=== PATIENT | male | born 1970 | race Two or more races ===

== ENCOUNTER 2025-01-26 11:39 | Emergency (ER) | payer MEDICAID, SELFPAY ==
--- NOTE | ~2025-01-26 | XR_ITS ---
EXAMINATION: XR CHEST CLINICAL INFORMATION: CP COMPARISON: None available. TECHNIQUE: PA and lateral views FINDINGS: No hyperinflation. No consolidation, pleural effusion or pneumothorax. Cardiomediastinal silhouette size is normal. Multilevel mid to lower thoracic spondylosis, mild to moderate. XR/XR chest 2V IMPRESSION: No acute airspace disease. Spondylosis, mild to moderate. Electronically signed by: Axel Ward MD 01/26/2025 12:13 PM EDT
--- NOTE | 2025-01-26 11:47 | ECG_ITS ---
Test Reason : sob Blood Pressure : */* mmHG Vent. Rate : 70 BPM Atrial Rate : 70 BPM P-R Int : 158 ms QRS Dur : 88 ms QT Int : 390 ms P-R-T Axes : 53 39 17 degrees QTcB Int : 421 ms Normal sinus rhythm Normal ECG No previous ECGs available Referred By: Kathryn Andre Electronically Signed By: MYNOR MADISON
[2025-01-26 11:56] VITALS: BP 148/69; PULSE 77; RESP 20; TEMP 37.3; O2SAT 96; BMI 37.2
--- NOTE | 2025-01-26 11:59 | ED_ITS ---
HPI - URI/Sore Throat General Chief Complaint: Upper Respiratory Symptoms Stated Complaint: SOB, cough Time Seen by Provider: 01/26/25 15:09 Source: patient and medical interpreter (uruguayan) Mode of arrival: ambulatory Limitations: language barrier (uruguayan) History of Present Illness ED Provider: ALEXIS BRADSHAW PA-C HPI Narrative: 54 year old male presents to the ED today for evaluation of cough x2 weeks. Admits cough started after driving to and from [place]. He was seen at urgent care approximately 1 week ago where he was prescribed a liquid cough medicine without relief. Endorses mild shortness of breath and chest discomfort with coughing. Cough is productive of clear sputum. Denies hemoptysis. He denies known sick contacts. Denies fever, chills, congestion, LE pain/swelling. Related Data Previous Rx's ?Medication ?Instructions ?Recorded azithromycin 250 mg tablet See Rx Instructions PO .COM PLEX #6 01/26/25 tabs benzonatate 100 mg capsule 100 mg PO BID PRN cough #20 caps 01/26/25 prednisone 20 mg tablet 40 mg (2 x 20 mg) PO DAILY 5 days 01/26/25 #10 tabs Allergies Allergy/AdvReac Type Severity Reaction Status Date / Time No Known Allergies Allergy Verified 01/26/25 12:01 Review of Systems 2 Review of Systems: Yes all other systems are reviewed and are negative PMFSH Past Medical History Attestation statement: The following information was validated with the patient. Source: old records reviewed and nursing notes reviewed Social History Social History Advance Directives: No Advance Directives Information Provided: No Physical Exam 2 Vital Signs: Vital Signs: Last Vital Signs Temp 98.2 F 01/26/25 15:27 Pulse 57 01/26/25 15:27 Resp 16 01/26/25 15:27 BP 146/74 H 01/26/25 15:27 Pulse Ox 96 01/26/25 15:27 O2 Del Method Room Air 01/26/25 15:27 BMI result Body Mass Index 37.2 hypertensive, not hypoxic or tachycardic General: Well appearing, in no acute distress. Skin: Warm, dry, intact. No rashes or lesions. Head: Normocephalic, atraumatic. EENT: Hearing is intact b/l. Conjunctiva clear. Sclera is anicteric. PERRLA. EOM intact. Moist mucous membranes.? Cardiac: Chest wall symmetric. RRR Lungs: Normal respiratory effort without accessory muscle use. Bronchospastic cough. CTA bilaterally. No rales, rhonchi, or wheezes.? Ext: no pitting edema, no calf tenderness b/l Neuro: AOx3. Normal speech. Ambulating with steady gait Course Course Course Narrative: This is an RME: Additional HPI, ROS, PE not included below will be deferred to primary provider. RME assessment and note performed by: Cintia Cowan PA-C This is a [id number]-male who presents to the ER with productive cough x 2 weeks. Also endorsing CP, constant, and midback pain. Went to urgent care recently and was prescribed some medicines - unsure of which. Pt does not see a doctor regularly, unknown medical history. Plan: Labs, EKG, CXR, further ER eval needed Reevaluation(s) Reevaluation #1: CBC without leukocytosis or left shift. H&H stable. Chemistry without acute electrolyte abnormality requiring intervention. BUN elevated at 28, normal creatinine. No priors to compare to. Random glucose 117, no gap. Liver function WNL. Troponin undetectable. Negative COVID, flu. Chest x-ray does not demonstrate pneumonia. ekg showing normal sinus rhythm, rate of 70 beats per minute, QT 390, QTC 421, no acute ischemic changes or ST elevations. > patient is PERC 2 (age + recent travel). will add on ddimer to r/o PE however likely URI. 1613 -- patient sustained 98% during ambulatory O2 trial. ddimer undetectable. PE unlikely. will discharge patient home with azithromycin + prednisone + tessalon perles for treatment of bronchitis. Patient has remained stable throughout ED visit today. Discussed worrisome signs and symptoms and when to return to the ED. All questions answered at this time. Patient is agreeable with disposition and stable for discharge. Medical Decision Making Medical Decision Making [facility] Narrative: 54 year old male presents to the ED today for evaluation of cough x2 weeks. Vital signs stable. He is well-appearing in no acute distress. No tripoding. Bronchospastic cough noted. Lungs are clear throughout. No pitting edema to bilateral lower extremities or calf tenderness. Differential diagnosis includes viral syndrome, URI, bronchitis, pneumonia, PE. Unlikely ACS. Plan for labs, viral swabs, chest x-ray, EKG, re-evaluation. Differential Diagnosis Differential Diagnoses: The differential diagnosis associated with the presentation includes as above. Admission/Observation Not indicated Lab Data MDM Lab Attestation statement: I reviewed the patient's lab results. as above. 01/26/25 12:18 01/26/25 12:18 Labs: Lab Results 01/26/25 01/26/25 Range/Units 12:18 15:35 WBC 9.0 (4.8-10.8) X10*3/uL RBC 4.54 L (4.60-5.80) X10*6/uL Hgb 14.8 (14.0-18.0) g/dl Hct 41.2 L (42.0-52.0) % MCV 90.7 (80.0-98.0) fL MCH 32.6 (27.0-33.0) pg MCHC 35.9 (31.0-36.0) g/dl RDW 12.8 (11.0-16.0) % Plt Count 200 (160-400) X10*3/uL MPV 8.6 L (9.4-12.4) fL Immature Gran % (Auto) 0.7 H (0.0-0.4) % Neut % (Auto) 71.7 (45-73) % Lymph % (Auto) 22.6 (20-40) % Falls % (Auto) 4.9 (2-11) % Eos % (Auto) 0.0 (0-4) % Baso % (Auto) 0.1 (0-2) % Lymph # (Auto) 2.0 (1.2-4.9) X10*3/uL Falls # (Auto) 0.4 (0.1-1.2) X10*3/uL Eos # (Auto) 0.0 (0.0-0.4) X10*3/uL Baso # (Auto) 0.0 (0.0-0.2) X10*3/uL Abs Immat Gran (auto) 0.06 H (0.00-0.03) X10*3/uL Absolute Neuts (auto) 6.5 (2.0-8.3) x10*3/uL Absolute Nucleated RBC 0.000 (0.0-0.012) X10*3/uL Nucleated RBC % (auto) 0.0 (0.0-0.2) /100WBC D-Dimer High Sensitivty < 150 NG/ML Sodium 140 (135-145) mmol/L Potassium 4.6 (3.3-5.1) mmol/L Chloride 107 (96-108) mmol/L Carbon Dioxide 26 (22-29) mmol/L Anion Gap 12 (12-20) BUN 28 H (9-16) mg/dL Creatinine 1.33 (0.5-1.4) mg/dL Estim Creat Clear Calc 73.6 Estimated GFR 56 Random Glucose 117 H (60-115) mg/dL Calcium 9.3 (8.4-10.2) mg/dL Magnesium 2.0 (1.6-2.6) mg/dL Total Bilirubin 0.8 (0.0-1.0) mg/dL Direct Bilirubin 0.2 (0.0-0.5) mg/dL AST 22 (5-37) U/L ALT 28 (0-40) U/L Alkaline Phosphatase 63 (39-117) U/L Troponin I High Sens < 2.7 (<3.5-35.0) ng/L Total Protein 7.5 (6.5-8.0) g/dL Albumin 4.4 (3.5-5.0) g/dL COVID-19 ([place]ENTINA) Negative (Negative) COVID-19 Clin Com See Note Influenza Type A (LISANDRA) Negative (Negative) Influenza Type B (LISANDRA) Negative (Negative) Influenza A & B Note See Note Independent Interpretation I performed an independent interpretation of an: EKG and Plain X-Ray Interpretation: EKG showing normal sinus rhythm, no acute ischemic changes Chest x-ray without infiltrate or consolidation Radiology Impression Discussion of test interpretation with radiology: I have reviewed the radiologist's reading. Radiologist Impression: Reason for Exam: CP EXAMINATION: XR CHEST CLINICAL INFORMATION: CP COMPARISON: None available. TECHNIQUE: PA and lateral views FINDINGS: No hyperinflation. No consolidation, pleural effusion or pneumothorax. Cardiomediastinal silhouette size is normal. Multilevel mid to lower thoracic spondylosis, mild to moderate. XR/XR chest 2V IMPRESSION: No acute airspace disease. Spondylosis, mild to moderate. Electronically signed by: Axel Ward MD 01/26/2025 12:13 PM EDT RP External Record Review External record reviewed: Inpatient record Prescription Management I considered prescription management with: Antibiotic (Azithromycin) and Other (Tessalon Perles, prednisone) Social Determinants Patient?s care significantly limited by Social Determinants of Health including: Other Social Determinant of Health Critical Care Time Critical Care Time Critical Care Time: No Discharge Plan Discharge Clinical Impression: Bronchitis Patient Disposition: Home, Self-Care Instructions: Acute Bronchitis (ED) Additional Instructions: You were evaluated in the ED today for continued cough for 2 weeks. Your blood work is reassuring. The EKG of your heart and xray of your chest are reassuring. I am treating you for bronchitis. Prednisone is a steroid that has been sent to your pharmacy. Take this as prescribed for 5 days. Azithromycin is an antibiotic that has been sent to your pharmacy. Tale this as prescribed for 5 days. Tesslon perles have been sent to your pharmacy for you to take as needed for cough. Cough can linger for weeks following an upper respiratory infection. Return with any new or worsening symptoms. In the case of an emergency call 911. Prescriptions: New azithromycin 250 mg tablet See Rx Instructions .ROUTE .COMPLEX Qty: 6 0RF Rx Instructions: For 250 mg dose pack: take 500 mg today (day 1), then 250 mg for 4 days (days 2-5) prednisone 20 mg tablet 40 mg PO DAILY 5 Days Qty: 10 0RF benzonatate 100 mg capsule 100 mg PO BID PRN (Reason: cough) Qty: 20 0RF Referrals: Physician,Unknown J [Primary Care Provider, Medical] Print Language: Other
[2025-01-26 12:23] LABS: MANUAL DIFF FLAG NO
[2025-01-26 12:26] LABS: Hematocrit 41.2 % (42.0-52.0); Hemoglobin 14.8 g/dl (14.0-18.0); Imm Gran Abs Auto 0.06 X10*3/uL (0.00-0.03); Imm Gran Pct Auto 0.7 % (0.0-0.4); Lymphocytes Absolute Auto 2.0 X10*3/uL (1.2-4.9); Mean Corpuscular HGB Conc 35.9 g/dl (31.0-36.0); Mean Corpuscular Hemoglobin 32.6 pg (27.0-33.0); Mean Corpuscular Volume 90.7 fL (80.0-98.0); NRBC Abs Auto 0.000 X10*3/uL (0.0-0.012); NRBC Pct Auto 0.0 /100WBC (0.0-0.2); Platelet Count 200 X10*3/uL (160-400); Red Blood Count 4.54 X10*6/uL (4.60-5.80); White Blood Count 9.0 X10*3/uL (4.8-10.8)
[2025-01-26 12:43] LABS: Alanine Aminotransferase 28 U/L (0-40); Albumin Level 4.4 g/dL (3.5-5.0); Alkaline Phosphatase 63 U/L (39-117); Anion Gap 12 (12-20); Aspartate Amino Transferase 22 U/L (5-37); Blood Urea Nitrogen 28 mg/dL (9-16); COVID-19 Test Negative (Negative); Calcium 9.3 mg/dL (8.4-10.2); Carbon Dioxide 26 mmol/L (22-29); Chloride 107 mmol/L (96-108); Creatinine Clr Calc Pharmacy 73.6; Estimated Glomerular Filt Rate 56; IDNOW Serial# 55D5AD1C; Magnesium 2.0 mg/dL (1.6-2.6); Potassium 4.6 mmol/L (3.3-5.1); Sodium 140 mmol/L (135-145); Total Protein 7.5 g/dL (6.5-8.0)
[2025-01-26 12:45] LABS: IDNOW Serial# 58CA691E; Influenza B2 Negative (Negative)
[2025-01-26 12:52] LABS: Troponin-I High Sensitivity < 2.7 ng/L (<3.5-35.0)
[2025-01-26 15:27] VITALS: BP 146/74; PULSE 57; RESP 16; TEMP 36.8; O2SAT 96
[2025-01-26 15:47] LABS: D Dimer High Sensitivity < 150 NG/ML
[2025-01-26 16:24] VITALS: BP 146/74; PULSE 57; RESP 16; TEMP 36.8; O2SAT 96
--- OUTSIDE RECORDS SUMMARY | 2025-01-26 19:01 | XMS_ITS | Clinical Summary ---
Author Organization [facility] Address [address] [place] [address] Care Team Providers Care Diet Supervisor Name Role Phone Tonia Hankins HOSPITAL FELLOW-C Primary Care Provider [phone] Source Comments PLEASE NOTE, if this patient is a minor, it may be UNLAWFUL to discuss sensitive information that is contained in these records (such as FAMILY PLANNING, MENTAL HEALTH or SUBSTANCE ABUSE) with the minor patient's parent or other person without the patient's specific authorization.[facility] Allergies No known active allergies Medications diclofenac sodium (VOLTAREN) 1 % gelIndications: Cervicalgia,Chr onic left-sided thoracic back pain Apply 2 g topically 2 (two) times daily 450 g 5 3 Active Active Problems No known active problems Resolved Problems Problem Noted Date Diagnosed Date Resolved Date Sciatica of right side 09/06/202008/20 Overview (09/06/2020): X-ray Lumbar + for mild degenerative changes without evidence of acute process Atypical angina ([facility]) Syncope 08/20/2022 Family History Medical History Relation Name Comments No Known Problems Father No Known Problems Mother Relation Name Status Comments Father Alive Mother Alive Social History Tobacco Use Types Packs/Day Years Used Date Smoking Tobacco: Never Smokeless Tobacco: Never Tobacco Cessation:Counseling Given: Yes Alcohol Use Standard Drinks/Week Comments Not Currently 0 (1 standard drink = 0.6 oz pur e alcohol) Social Connections Answer Date Recorded Connectedness 0 01/29/2024 Financial Resource Strain Answer Date R ecorded Financial Resource Strain 0 2019 Stress Answer Date Recorded Stress 0 07/10/2019 Physical Activity Answer Date Recorded Physical Activity 0 07/10/2019 Food Insecurity Answer Date Recorded Food 0 02/06/2024 Transportation Needs Answer Date Record ed Transportation 0 07/10/2019 Housing Stability Answer Date Recorded Housing 0 07/10/2019 Safety and Environment Answer Date Tony rded Safety 0 07/10/2019 Utilities Answer Date Recorded Utilities 0 07/10/2019 Employment Answer Date Recorded Stress 0 01/29/2024 Sex and Gender Information Value Date Recorded Sex Assigned at Male 07/10/2019 7:12 AM PST Legal Sex Male 11:36 AM PDT Gender Identity Male 07/10/2019 7:12 AM PST Sexual Orientation Don't know 07/10/2019 7: 12 AM PST Last Filed Vital Signs Vital Sign Reading Time Taken Comments Blood Pressure 120/80 08/20/2022 1:04 PM EDT Pulse 78 08/20/2022 1:04 PM EDT Temperature 37.1 C (98.7 F) 08/20/2022 1:04 PM EDT Respiratory Rate 16 08/20/2022 1:04 PM EDT Oxygen Saturation 98% 08/23/2020 1:06 PM EDT Inhaled Oxygen Concentration - - Weight 107.1 kg (236 lb 1.6 oz) 08/20/2022 1:04 PM EDT Height 170.2 cm (5' 7 ) 08/20/2022 1:04 PM EDT Body Mass Index 36.98 08/20/2022 1:04 PM EDT Plan of Treatment Health Maintenance Due Date Last Done Comments Anxiety Screening 1972 Tobacco Screening 1972 Imm-DTaP/Tdap/Td (1 - Tdap) 1991 Imm-Hepatitis B (1 of 3 - 19 + 3-dose series) 1991 CT Colonography 2017 Colonoscopy 2017 Flexible Sigmoidoscopy 2017 Imm-Pneumococcal 50+ (1 of 1 - PCV) 2022 Imm-Zoster, Recombinant (1 of 2) 2022 Hypertension Screening (#1) 08/20/2023 Annual Wellness (Adult): Ind icated (All Coverage) 08/21/2023 08/20/2022 FIT/gFOBT 03/23/2024 03/23/2023 Alcohol and Drug Screen 05/13/2024 08/21/19 23, 08/20/2022, 08/15/2020 Depression Annual Screen 05/13/2024 08/20/2022 [id number] ( season) 2025 Imm-Influenza (#1) 2025 Diabetes Screening 08/20/2025 08/20/2022, 0 08/20/2022, 08/15/2020, Additional history exists Colorectal Cancer Screening 03/23/2026 Fecal DNA 03/23/2026 03/23/2023 Lipid Screening 08/21/2027 08/20/2022, 08/15/2020 HIV Screening Completed 08/15/2020 Hepatitis C Screening Completed 08/15/2020 Procedures Procedure Name Priority Date/Time Associated Diagnosis Comments COLOGUARD Routine 03/23/2023 3:00 AM EST Health maintenance examination Colon cancer screening COMPREHENSIVE METABOLIC PANEL Routine 08/20/2022 1:36 PM EDT Health maintenance examination LIPIDS W RFLX TO DIRECT LDL Routine 08/20/2022 1:36 PM EDT Health maintenance examination HIV 1/2 AG & AB W/RFLX (4TH GEN) Routine 08/15/2020 1:48 PM EDT Screening for viral disease ACUTE HEPATITIS PANEL W/RFLX Routine 08/15/2020 1:48 PM EDT Encounter for wellness examination in adult Screening for viral disease from Last 3 Months or Most Recently Relevant to Health Maintenance Results * COLOGUARD (03/23/2023 3:00 AM EST) Stool Stool specimen / Unknown 03/23/2023 3:00 AM EST us Asya Wood NP LAB BODY FLUIDS AND STOOLS AMB ULATORY Edited Result - Final [employer] [address], [address] [facility] [id number] [place] [address], * (ABNORMAL) Lipid Panel (with Reflex Direct LDL) (08/20/2022 1:36 PM EDT) CHOLESTEROL, TOTAL 169 <200 mg/dL [facility] HDL CHOLESTEROL 51 > OR = 40 mg/dL [facility] TRIGLYCERIDES 83 <150 mg/dL [facility] LDL-CHOLESTEROL 101(H) 99 mg/dL (calc) [facility] Comment: Reference range: <100 Desirable range <100 mg/dL for primary prevention; <70 mg/dL for patients with CHD or diabetic patients with > or = 2 CHD risk factors. LDL-C is now calculated using the Ellen calculation, which is a validated novel method providing better accuracy than the Friedewald equation in the estimation of LDL-C. Minesh MIRANDA et al. ALEJANDRA. 2013;310(19): 2657-1646 (http://education.Pinpoint MD/faq/UZX334) CHOL/HDLC RATIO 3.3 <5.0 (calc) [facility] NON-HDL CHOLESTEROL 118 <130 mg/dL (calc) [facility] Comment: For patients with diabetes plus 1 major ASCVD risk factor, treating to a non-HDL-C goal of <100 mg/dL (LDL-C of <70 mg/dL) is considered a therapeutic option. Blood Blood / Unknown 08/20/2022 1 :36 PM EDT 08/20/2022 1:37 PM EDT Asya Wood NP LAB - BLOOD DRAW Final Result [employer] [address] [place] [id number], [employer] [address] [address] * (ABNORMAL) CMP (08/20/2022 1:36 PM EDT) GLUCOSE 92 65 - 99 mg/dL [facility] Comment: Fasting reference interval UREA NITROGEN (BUN) 20 7 - 25 mg/dL [facility] CREATININE (blood) 1.44(H) 0.70 - 1.30 mg/dL [facility] EGFR 59(L) > OR = 60 mL/min/1. 73m2 [facility] Comment: The eGFR is based on the CKD-EPI 2020 equation. To calculate the new eGFR from a previous Creatinine or Cystatin C result, go to https://www.kidney.org/professionals/ kdoqi/gfr%5Fcalculator BUN/CREATININE RATIO 14 6 - 22 (calc) [employer] [facility] SODIUM 140 135 - 146 mmol/L [employer] [facility] POTASSIUM 4.3 3.5 - 5.3 mmol/L [employer] [facility] CHLORIDE 106 98 - 110 mmol/L [employer] [facility] CARBON DIOXIDE 28 20 - 32 mmol/L [employer] [facility] CALCIUM 9.3 8.6 - 10.3 mg/dL [employer] [facility] PROTEIN, TOTAL 7.3 6.1 - 8.1 g/dL [employer] [facility] ALBUMIN 4.1 3.6 - 5.1 g/dL [employer] [facility] GLOBULIN 3.2 1.9 - 3.7 g/dL (calc) [employer] [facility] ALBUMIN/GLOBULI N RATIO 1.3 1.0 - 2.5 (calc) [employer] [facility] BILIRUBIN, TOTAL 0.5 0.2 - 1.2 mg/dL [employer] [facility] ALKALINE PHOSPHATASE 69 35 - 144 U/L [employer] [facility] AST 17 10 - 35 U/L [employer] [facility] ALT 22 9 - 46 U/L [employer] [facility] Blood Blood / Unknown 08/20/2022 1 :36 PM EDT 08/20/2022 1:37 PM EDT Asya Wood NP LAB - BLOOD DRAW Edited Result - Final [employer] [address] [address], [employer] [address] [address] from Last 3 Months or Most Recently Relevant to Health Maintenance Insurance [facility] Care Teams Diet Supervisor Relationship Specialty Start Date End Date Tonia Hankins FNP-C [address] [place] [address] PCP - General Internal Medicine 07/02/23
--- OUTSIDE RECORDS SUMMARY | 2025-01-26 19:01 | XMS_ITS | Clinical Summary ---
Author Organization [facility] [address] it[address] Address [address] [place] [address] Care Team Providers Care Can Marker Name Role Phone Unavailable Primary Care Provider Unavailabl e Social History Tobacco Use Types Packs/Day Years Used Date Smoking Tobacco: Never Assessed Sex and Gender Information Value Date Recorded Sex Assigned at Not on file Legal Sex Male 8:53 PM EST Gender Identity Not on file Sexual Orientation Not on file Plan of Treatment Health Maintenance Due Date Last Done Comments DTaP,Tdap,and Td Vaccines (1 - Tdap) 1991 Hepatitis B Vaccines (1 of 3 - 19+ 3-dose series) 1991 Pneumococcal Vaccine: 50+ Ye ars (1 of 1 - PCV) 2022 Zoster Vaccines (1 of 2) 2022 Cholesterol Screening (Lipid Panel) 06/07/2023 Colorectal Cancer Screening: Colonoscopy 06/07/2023 HIV Screening 06/07/2023 Hepatitis C Screening 06/07/2023 Social Influencers of Health Screening 06/07/2023 Depression Screening 05/13/2024 COVID-19 Vaccine ( - 2023-2 5 season) 2025 Influenza Vaccine (#1) 2025 HIB Vaccines Aged Out No longer eligi ble based on patient's age to complete this topic HPV Vaccines Aged Out No longer eligi ble based on patient's age to complete this topic Hepatitis A Vaccines Aged Out No long er eligible based on patient's age to complete this topic IPV Vaccines Aged Out No longer eligi ble based on patient's age to complete this topic MMR Vaccines Aged Out No longer eligi ble based on patient's age to complete this topic Meningococcal ACWY Vaccine Aged Out N o longer eligible based on patient's age to complete this topic Meningococcal B Vaccine Aged Out No l onger eligible based on patient's age to complete this topic RSV Immunization Patients Un hitesh 20 months Aged Out No longer eligible b ased on patient's age to complete this topic Varicella Vaccines Aged Out No longer eligible based on patient's age to complete this topic
--- OUTSIDE RECORDS SUMMARY | 2025-01-26 19:01 | XMS_ITS | Clinical Summary ---
Author Organization [email or web address] [facility] Address [address] [place] [address] Care Team Providers Care Wrapper Cashier Name Role Phone Unavailable Primary Care Provider Unavailabl e Encounters Date Type Department Care Team Description 12/01/2024 Population Health Risk Score [facility] (C3) Department [address] [address] Provider, Population Health Generic from Last 3 Months Social History Tobacco Use Types Packs/Day Years Used Date Smoking Tobacco: Never Assessed Sex and Gender Information Value Date Recorded Sex Assigned at Not on file Legal Sex Male 9:21 PM EDT Gender Identity Not on file Sexual Orientation Not on file Plan of Treatment Health Maintenance Due Date Last Done Comments CT Colonography 1972 Colonoscopy 1972 Colorectal Cancer Screening 1972 Depression Screening 1972 FIT DNA/Cologuard 1972 FIT 1972 FOBT 1972 Lipid Panel 1972 SDOH Screening 1972 Sigmoidoscopy 1972 Disability Screening 1972 Alcohol/Substance Use Screening 1984 Tobacco Screening 1984 Family Planning (PISQ) 1987 Hepatitis C Screening 1990 DTaP/Tdap/Td Vaccines (1 - Tdap) 1991 Hepatitis B Vaccines (1 of 3 - 19+ 3-dose series) 1991 Pneumococcal Vaccine: 50+ Ye ars (1 of 1 - PCV) 2022 Zoster Vaccines (1 of 2) 2022 COVID-19 Vaccine (1 - 2023-2 5 season) 2025 Influenza Vaccine (#1) 2025 RSV Patients and Pa tients Aged 60 years or older (1 - 1-dose 75+ series) 2047 HIV Screening Completed 08/15/2020 HIB Vaccines Aged Out No longer eligi [...] patient's age to complete this topic Meningococcal Vaccine Aged Out No sahil remy eligible based on patient's age to complete this topic RSV under 20 months Aged Out No longe r eligible based on patient's age to complete this topic Rotavirus Vaccines Aged Out No longer eligible based on patient's age to complete this topic
== END 2025-01-26 16:28 | disposition home or self-care (01) ==
PROVIDERS: Physician Assistant Medical; Emergency Provider Emergency Medicine; PCP Dentist General Practice
DX: J40 Bronchitis, not specified as acute or chronic (principal); R06.02 Shortness of breath; R07.9 Chest pain, unspecified; Z03.818 Encounter for observation for suspected exposure to other biological agents ruled out
CPT/HCPCS: 36415; 71046; 80048; 80076; 83735; 84484; 85025; 85379; 87502; 87635; 93005; 99283; 99284

== ENCOUNTER → 2025-01-26 11:47 | Outpatient (BNV) | payer MEDICAID, SELFPAY | PROVIDERS: Emergency Provider Emergency Medicine; PCP Dentist General Practice; Visit Provider Internal Medicine | DX: R06.02 Shortness of breath (principal) | CPT/HCPCS: 93010 ==

== ENCOUNTER → 2025-01-26 12:01 | Outpatient (BNV) | payer MEDICAID, SELFPAY | PROVIDERS: Visit Provider Radiology Diagnostic Radiology | DX: R07.89 Other chest pain (principal) | CPT/HCPCS: 71046 ==